=== PATIENT | male | born 2000 | race Caucasian/White ===

== ENCOUNTER 2022-09-27 05:17 | Emergency (ER) | payer OTHER ==
[~2022-09-27] VITALS: Ht 190.5 cm; Wt 140.9 kg
[2022-09-27 06:09] LABS: Basophils # (auto) 0 10 ^3/uL (0-0.2); Basophils % (auto) 0.7 % (0.0-2.0); Eosinophils # (auto) 0.2 10 ^3/uL (0-0.8); Eosinophils % (auto) 2.5 % (0.0-7.0); Hematocrit 43.9 % (41.0-53.0); Hemoglobin 15.3 g/dL (13.5-17.5); Lymphocytes # (auto) 2.9 10 ^3/uL (0.4-5.4); Lymphocytes % (auto) 43.1 % (10.0-50.0); Mean Corpuscular Hemoglobin 29.1 pg (28.0-32.0); Mean Corpuscular Hgb Conc. 34.9 g/dL (32.0-36.0); Mean Corpuscular Volume 83.4 fL (80.0-100.0); Monocytes # (auto) 0.5 10 ^3/uL (0-1.3); Monocytes % (auto) 7.7 % (0.0-12.0); Neutrophils # (auto) 3.1 10 ^3/uL (1.6-8.6); Nucleated Red Blood Cells % 0.2 %; Red Blood Cells 5.27 10^6/uL (4.5-5.90); Red Cell Distribution Width 14.1 % (11.8-14.3); White Blood Cell 6.7 10^3/uL (4.4-10.8)
[2022-09-27 06:21] LABS: Albumin 3.8 g/dL (3.4-5.0); BUN/Creatinine Ratio 16.5 (10.0-20.0); Calcium 9.3 mg/dL (8.5-10.1); Magnesium 2.4 mg/dL (1.6-2.6); Potassium 3.9 mmol/L (3.5-5.1)
[2022-09-27 06:24] LABS: Bilirubin, Total 0.5 mg/dL (0.2-1.0); Total Protein 7.9 g/dL (6.4-8.2)
[2022-09-27 06:30] LABS: INR 0.99 (0.9-1.15); Partial Thromboplastin Time 28.8 sec (24.6-33.4)
[2022-09-27 07:40] VITALS: BP 140/76
== END 2022-09-27 07:41 | disposition home or self-care (01) ==
LOC: ER 05:17
DX: R07.89 Other chest pain (principal); Z91.030 Bee allergy status
CPT/HCPCS: 36415; 71045; 80053; 83735; 83880; 84484; 85025; 85610; 85730; 93005